=== PATIENT | female | born 1975 | race Caucasian/White ===

== ENCOUNTER → 2016-07-15 07:37 | Outpatient (CLI) | payer OTHER, MEDICAID ==
[2015-11-17 20:55] VITALS: BMI 21.2
[~2016-07-15 07:37] MED LIST: HYDROCODONE-APA1 TAB PO; KLONOPIN1 MG PO; OXYCONTIN15 MG PO; TEMAZEPAM30 MG PO
== END ==
LOC: D.MRI 07-14 16:00
DX: G43.919 Migraine, unspecified, intractable, without status migrainosus (principal)

== ENCOUNTER 2017-12-24 07:49 | Emergency (ER) | payer MEDICARE ==
[~2017-12-24] VITALS: Ht 170.2 cm; Wt 60.9 kg
[2017-12-24 07:55] VITALS: Ht 170.2 cm; Wt 60.9 kg
[2017-12-24] MEDS ORDERED: VITAMIN B-121000 MCG PO (07:59)
[2017-12-24] MEDS ORDERED: XANAX1 MG PO (07:59)
[2017-12-24] MEDS ORDERED: ADDERALL 20 MG20 M1 PO (08:00)
[2017-12-24] MEDS ORDERED: CYCLOBENZAPRINE10 MG PO ×2 (08:00→08:19)
[2017-12-24] MEDS ORDERED: NAPROSYN500 MG PO (08:01)
[2017-12-24] MEDS ORDERED: METROGEL 0.75 %45 GM TOPICAL (08:01)
[2017-12-24] MEDS ORDERED: NORCO 7.5/325 T1 TA1 PO (08:19)
[2017-12-24 09:10] VITALS: BP 114/80
== END 2017-12-24 09:10 | disposition home or self-care (01) ==
LOC: D.ER 07:49
DX: M50.10 Cervical disc disorder with radiculopathy, unspecified cervical region (principal); F41.9 Anxiety disorder, unspecified; F17.200 Nicotine dependence, unspecified, uncomplicated

== ENCOUNTER 2018-03-26 10:35 | Emergency (ER) | payer MEDICARE ==
[~2018-03-26] VITALS: Ht 170.2 cm; Wt 61.4 kg
[~2018-03-26 10:35] MED LIST changes: +ADDERALL 20 MG20 M1 PO; +CYCLOBENZAPRINE10 MG PO; +METROGEL 0.75 %45 GM TOPICAL; +NAPROSYN500 MG PO; +NORCO 7.5/325 T1 TA1 PO; +VITAMIN B-121000 MCG PO; +XANAX1 MG PO
[2018-03-26 10:40] VITALS: BP 148/87; Ht 170.2 cm; Wt 61.4 kg
[2018-03-26] MEDS ORDERED: VOLTAREN75 MG PO (13:23)
[2018-03-26] MEDS ORDERED: OMEPRAZOLE20 M1 PO (13:23)
== END 2018-03-26 13:50 | disposition home or self-care (01) ==
LOC: D.ER 10:35
DX: S59.902A Unspecified injury of left elbow, initial encounter (principal); Y93.83 Activity, rough housing and horseplay; Y93.89 Activity, other specified; Y92.89 Other specified places as the place of occurrence of the external cause; F17.200 Nicotine dependence, unspecified, uncomplicated

== ENCOUNTER 2018-04-15 16:13 | Inpatient (IN) | payer MEDICARE ==
[~2018-04-15] VITALS: Ht 170.2 cm; Wt 63.6 kg
[~2018-04-15 16:13] MED LIST changes: +OMEPRAZOLE20 M1 PO; +VOLTAREN75 MG PO
[2018-04-15 16:44] LABS: BASOPHILS 0.2 % (0-2); EOSINOPHILS 0.7 % (0-7); HEMATOCRIT 41.5 % (36.0-48.0); LYMPHOCYTES 12.5 % (15-50); MCH 33.4 pg (26.0-34.0); MCHC 33.7 g/dL (31.0-37.0); MEAN PLATELET VOLUME 11.1 fL (7.4-10.4); MONOCYTES 5.3 % (2-11); NEUTROPHILS 81.3 % (40-80); RBC 4.19 10x6/uL (4.00-5.40); RDW 13.3 % (11.5-14.5); WBC 4.6 10x3/uL (4.8-10.8)
[2018-04-15 16:48] LABS: PLATELET COUNT 87 10x3/uL (130-400)
[2018-04-15 16:49] LABS: HCG URINE NEGATIVE (NEGATIVE)
[2018-04-15 16:50] LABS: APPEARANCE CLEAR (CLEAR); BILIRUBIN 1+ (NEGATIVE); COLOR DK YELLOW (YELLOW); GLUCOSE NEGATIVE (NEGATIVE); KETONE NEGATIVE (NEGATIVE); NITRITE NEGATIVE (NEGATIVE); PROTEIN TRACE mg/dL (NEGATIVE)
[2018-04-15 17:24] LABS: ALBUMIN 3.4 g/dL (3.4-5.0); ALKALINE PHOSPHATASE 399 U/L (46-116); ALT (SGPT) 369 U/L (10-68); BILIRUBIN - TOTAL 1.58 mg/dL (0.2-1.3); CALC OSMOLALITY 275 mosm/kg (275-300); CARBON DIOXIDE 28.1 mmol/L (21.0-32.0); CHLORIDE - SERUM 99 mmol/L (98-107); CREATININE - SERUM 0.9 mg/dL (0.6-1.3); GLUCOSE 105 mg/dL (74-106); POTASSIUM - SERUM 3.7 mmol/L (3.5-5.1); PROTEIN - SERUM 6.5 g/dL (6.4-8.2); SODIUM 137 mmol/L (136-145); UREA NITROGEN 17 mg/dL (7-18); eGFR NON AFRICAN AMERICAN 73 mL/min (90-120)
[2018-04-15 17:27] LABS: TROPONIN-I < 0.017 ng/mL (0.000-0.060)
[2018-04-15 19:43] VITALS: BP 121/71
[2018-04-15 20:20] LABS: UDS - AMPHET NEGATIVE QUAL (NEGATIVE); UDS - BARB NEGATIVE QUAL (NEGATIVE); UDS - BENZO NEGATIVE QUAL (NEGATIVE); UDS - COCAINE NEGATIVE QUAL (NEGATIVE); UDS - OPIATE POSITIVE QUAL (NEGATIVE); UDS - PCP NEGATIVE QUAL (NEGATIVE); UDS - THC POSITIVE QUAL (NEGATIVE)
--- NOTE | 2018-04-15 21:01 | NUR ---
BREVING IN PATIENT ROOM AT THIS TIME TO SPEAK TO PATIENT.
--- NOTE | 2018-04-15 21:16 | NUR ---
REPORT CALLED TO NANDA RUANO AT THIS TIME
--- NOTE | 2018-04-15 21:36 | NUR ---
RECEIVED PT TO FLOOR FROM ER VIA WHEELCHAIR. REVIEWED HOME MEDS AND HISTORY. SET UP RAILROAD COOK AND IV FLUIDS. GAVE ORDERED MEDS. PT DRANK MAG CITRATE AND CLEAR LIQUIDS UNTIL MIDNIGHT. PT WALKING HALLWAYS. WILL CONTINUE TO MONITOR.
[2018-04-16] VITALS (7 sets, daily range): BP systolic 110–157; BP diastolic 52–94; BMI 21.9
[2018-04-16] MEDS ORDERED: CATAPRES0.2 MG PO (02:01)
[2018-04-16] MEDS ORDERED: NORCO 10-325 TA1 TAB PO (02:03)
[2018-04-16 06:03] LABS: BASOPHILS 0.2 % (0-2); EOSINOPHILS 1.3 % (0-7); HEMATOCRIT 41.2 % (36.0-48.0); HEMOGLOBIN 13.5 g/dL (12-16); IMMATURE GRANULOCYTES 0.2 % (0-5); LYMPHOCYTES 37.2 % (15-50); MCHC 32.8 g/dL (31.0-37.0); MCV 100.7 fL (80.0-100.0); MEAN PLATELET VOLUME 11.8 fL (7.4-10.4); MONOCYTES 4.5 % (2-11); NEUTROPHILS 56.6 % (40-80); PLATELET COUNT 73 10x3/uL (130-400); RBC 4.09 10x6/uL (4.00-5.40); RDW 13.6 % (11.5-14.5); WBC 4.7 10x3/uL (4.8-10.8)
[2018-04-16 06:21] LABS: ALBUMIN 3.5 g/dL (3.4-5.0); ALKALINE PHOSPHATASE 411 U/L (46-116); ALT (SGPT) 279 U/L (10-68); BILIRUBIN - TOTAL 0.71 mg/dL (0.2-1.3); CALCIUM 8.1 mg/dL (8.5-10.1); CHLORIDE - SERUM 107 mmol/L (98-107); CREATININE - SERUM 0.8 mg/dL (0.6-1.3); GLUCOSE 119 mg/dL (74-106); MAGNESIUM - SERUM 2.2 mg/dL (1.8-2.4); PHOSPHOROUS 2.8 mg/dL (2.5-4.9); POTASSIUM - SERUM 3.8 mmol/L (3.5-5.1); SODIUM 139 mmol/L (136-145); eGFR NON AFRICAN AMERICAN 83 mL/min (90-120)
[2018-04-16 06:22] LABS: CALC OSMOLALITY 277 mosm/kg (275-300); CARBON DIOXIDE 18.9 mmol/L (21.0-32.0); UREA NITROGEN 10 mg/dL (7-18)
[2018-04-16 06:51] LABS: PLATELET ESTIMATE DECREASED; PLATELET MORPHOLOGY GIANT PLTS PRESENT
--- NOTE | 2018-04-16 11:04 | NUR ---
ALERT AND ORIENTED AND VERY ANXIOUS HAS BEEN NPO. US OF ABDOMEN DONE. AWAITING FURTHER ORDERS FROM MD. IVF AND PROGRAM PROFESSIONAL DILAUDID INFUSING AT PRESCRIBED RATE. NPO UNTIL FURTHER ORDERS
--- NOTE | 2018-04-16 12:59 | NUR ---
PATIENT PREVIOUSLY REQUESTED TO BE UNHOOKED TO AMBULATED IN HALLWAY WITH FRIEND AND RETURNED 30 MINUTES LATER WANTING A BOLUS. STATED WAS TOLD COULD HAVE A BOLUS WITH NO ORDER NOTED. PATIENT VISABLY UPSET AND WANTING A SHOWER WELL.INFORMED THERE WAS NOT AN ORDER FOR A BOLUS AT THIS TIME.
[2018-04-16] MEDS ORDERED: VITAMIN B-121000 MCG IM (17:01)
[2018-04-16] MEDS ORDERED: CATAPRES0.1 MG PO (17:02)
[2018-04-16] MEDS ORDERED: RESTORIL15 MG PO (17:02)
[2018-04-16] MEDS ORDERED: XANAX1 MG PO (17:04)
--- NOTE | 2018-04-16 20:08 | NUR ---
PATIENT ANXIOUS AND STOPPED dR. MCLEOD IN REPLACED BY [facility]. DR. MCLEOD ORDERED EKG FOR PATIENT.ZOFRAN GIVEN FOR COMPLAINTS OF NAUSEA. PATIENT PREVIOUSLY COMPLAINED OF HAVING AL ALLERGIC REACTION WHICH RESIDENT DID PRESENT WITH REDNESS TO EYES AND COMPLAINTS OF ITCHING ALL OVER. SOLUMEDROL AND BENADRYL GIVEN IVP FOR SYMPTOMS AND EFFECTIVE.
[2018-04-17] VITALS: BP 156/81
[2018-04-17 03:00] VITALS: BP 169/74
[2018-04-17 03:57] LABS: BASOPHILS 0 % (0-2); EOSINOPHILS 0 % (0-7); HEMATOCRIT 33.2 % (36.0-48.0); HEMOGLOBIN 10.8 g/dL (12-16); IMMATURE GRANULOCYTES 0.2 % (0-5); LYMPHOCYTES 10.6 % (15-50); MCH 32.3 pg (26.0-34.0); MCHC 32.5 g/dL (31.0-37.0); MCV 99.4 fL (80.0-100.0); MEAN PLATELET VOLUME 11.8 fL (7.4-10.4); MONOCYTES 5.3 % (2-11); NEUTROPHILS 83.9 % (40-80); RBC 3.34 10x6/uL (4.00-5.40); RDW 13.3 % (11.5-14.5); WBC 4.9 10x3/uL (4.8-10.8)
[2018-04-17 04:03] LABS: PLATELET COUNT 57 10x3/uL (130-400)
[2018-04-17 04:04] LABS: INR 0.92 (0.85-1.17); PROTIME 11.9 SECONDS (11.6-15.0)
[2018-04-17 04:17] LABS: % SATURATION 6 % (15-55); IRON 17 ug/dl (35-150); TOTAL IRON BIND CAPACITY 277 ug/dl (260-445); UNSAT IRON BIND CAPACITY 260 ug/dl (150-375)
[2018-04-17 04:25] LABS: ALKALINE PHOSPHATASE 269 U/L (46-116); AMYLASE - SERUM 21 U/L (25-115); BILIRUBIN - TOTAL 0.26 mg/dL (0.2-1.3); CALCIUM 7.8 mg/dL (8.5-10.1); CHLORIDE - SERUM 105 mmol/L (98-107); CHOL - HDL RATIO 2.5 ratio (2.3-4.1); CHOLESTEROL, TOTAL 132 mg/dL (0-200); CREATININE - SERUM 0.7 mg/dL (0.6-1.3); FERRITIN 68 ng/mL (3-244); GLUCOSE 166 mg/dL (74-106); HDL CHOLESTEROL 52 mg/dL (32-96); LDL CHOLESTEROL 60 mg/dL (0-100); LDL-HDL RATIO 1.2 ratio (1.5-3.5); LIPASE 102 U/L (73-393); POTASSIUM - SERUM 3.9 mmol/L (3.5-5.1); PRE-ALBUMIN 18.5 mg/dL (18.0-35.7); PROTEIN - SERUM 5.5 g/dL (6.4-8.2); SODIUM 139 mmol/L (136-145); TRIGLYCERIDE 102 mg/dL (30-200); eGFR NON AFRICAN AMERICAN > 90 mL/min (90-120)
[2018-04-17 04:29] LABS: ALBUMIN 2.6 g/dL (3.4-5.0); ALT (SGPT) 139 U/L (10-68); CALC OSMOLALITY 278 mosm/kg (275-300); CARBON DIOXIDE 27.7 mmol/L (21.0-32.0); UREA NITROGEN 5 mg/dL (7-18)
[2018-04-17 09:00] VITALS: BP 122/78
[2018-04-17 09:53] VITALS: Ht 170.2 cm; Wt 63.6 kg
--- NOTE | 2018-04-17 12:01 | NUR ---
TO MRI PER WC
[2018-04-17 12:06] VITALS: BP 122/78
[2018-04-17 13:34] VITALS: BP 129/77
[2018-04-17 16:00] VITALS: BP 142/78
[2018-04-17] MEDS ORDERED: MIRALAX17 GM PO (16:12)
--- NOTE | 2018-04-17 17:01 | MORECARE ---
CASE MANAGEMENT DISCHARGE SUMMARY PATIENT: ROSENDA MERCEDES UNIT: [id number] ADM DATE: 04/15/18 AGE: 42 : 75 SEX: F ROOM/BED: D.2228 AUTHOR: LOLA ENGLISH PHYSICIAN: REFERRING PHYSICIAN: KEELY RAMIREZ MD DATE OF SERVICE: 04/17/18 Discharge Plan Patient Name: ROSENDA MERCED[facility] [facility] 1975 Planned Disposition: Home Anticipated Discharge Date: Discharge Date: Expected LOS: Initial Reviewer: [email or web address] Initial Review Date: 04/17/2018 Generated: 04/17/18 6:01 pm DCPIA - Discharge Planning Initial Assessment Updated by [email or web address]: Amanda Pike on 04/17/18 4:58 pm * Is the patient Alert and Oriented? Yes * PCP none * Pharmacy [facility] [address] * Preadmission Environment Other * Other Environment States has been living with friends * ADLs Independent * Equipment None * List name and contact numbers for known caregivers / representatives who currently or will assist patient after discharge: Cain jack - [phone] * Verbal permission to speak to the caregivers and representatives has been obtained from the patient. Yes * Community resources currently utilized None * Additional services required to return to the preadmission environment? No * Can the patient safely return to the preadmission environment? Yes * Has this patient been hospitalized within the prior 30 days at any hospital? No Patient Name: ROSENDA MERCEDES Page [id number] at 1701 All edits/amendments must be made on the electronic document DICTATION DATE: 04/17/18 170 CASINO SHIFT MANAGER: GILMER 04/17/18 170 RPT#: [id number] DC DATE: STATUS: ADM IN [facility] [address] [place] [address] END OF REPORT
--- NOTE | 2018-04-17 17:11 | MORECARE ---
CASE MANAGEMENT DISCHARGE SUMMARY PATIENT: ROSENDA MERCEDES UNIT: [id number] ADM DATE: 04/15/18 AGE: 42 : 75 SEX: F ROOM/BED: D.2228 AUTHOR: AMADOR,DOC PHYSICIAN: REFERRING PHYSICIAN: KEELY RAMIREZ MD DATE OF SERVICE: 04/17/18 Discharge Plan Patient Name: ROSENDA MERCEDES Facility: [facility]:[place] : 1975 Planned Disposition: Home Anticipated Discharge Date: Discharge Date: Expected LOS: Initial Reviewer: [email or web address] Initial Review Date: 04/17/2018 Generated: 04/17/18 6:10 pm Comments DCP- Discharge Planning Updated by [email or web address]: Amanda Pike on 04/17/18 4:[address] Patient Name: ROSENDA MERCEDES Admission Status: ER Accout number: [id number] Admission Date: 04-15-2018 : 1975 Admission Diagnosis: Attending: JAMES, Current LOS: 2 Anticipated DC Date: Planned Disposition: Home Primary Insurance: MEDICARE A & B Discharge Planning Comments: Met with patient to discuss discharge planning, she is alone in the room. States she is going to stay with a friend scottie. States she does have a daughter here in [place] and a sister in [place] that she could stay with, but her daughter is 9 months and her sister is controlling. States she has been living at different friend's homes. She states that she needs a primary doctor, I suggested that she call and see who is taking Medicare. She is also going to check [facility] and states she will check with the offices in [place]. A list of homeless shelters and food pantries provided per her request. CM will continue to follow and assist with discharge planning/needs. Horticultural Specialty Grower Inside: Amanda Pike DCPIA - Discharge Planning Initial Assessment Updated by [email or web address]: Amanda Pike on 04/17/18 4:58 pm * Is the patient Alert and Oriented? Yes * PCP none * Pharmacy [facility] [address] * Preadmission Environment Other * Other Environment States has been living with friends * ADLs Independent * Equipment None * List name and contact numbers for known caregivers / representatives who currently or will assist patient after discharge: Cain jack - [phone] * Verbal permission to speak to the caregivers and representatives has been obtained from the patient. Yes * Community resources currently utilized None * Additional services required to return to the preadmission environment? No * Can the patient safely return to the preadmission environment? Yes * Has this patient been hospitalized within the prior 30 days at any hospital? No Last DP export: 04/17/18 4:01 p Patient Name: ROSENDA MERCEDES Page 78698 at 1711 All edits/amendments must be made on the electronic document DICTATION DATE: 04/17/181709 PIPE AND BOILER COVERS SUPERVISOR: GILMER 04/17/181709 RPT#: [id number] DC DATE: STATUS: ADM IN [facility] [address] [place] [address] END OF REPORT
--- NOTE | 2018-04-17 18:21 | NUR ---
PATIENT UP WALKING ABOUT IN ROOM DISCHARGE INSTRUCTIONS GIVEN AND VERBALIZED UNDERSTANDING AND IV REMOVED. PATIENT DISCHARGED VIA PRIVATE VEHICLE WITH BELONGINGS AND DISCHARGE PAPER WORK.
[2018-04-18 07:28] LABS: HEPATITIS C ANTIBODY <0.1 S/CO RAT (0.0-0.9)
[2018-04-18 11:21] LABS: ALPHA FETOPROTEIN -(TUMOR MRK) 2.4 ng/mL (0.0-8.3); CA 19-9 1 U/mL (0-35); CEA 2.9 ng/mL (0.0-4.7)
[2018-04-18 12:17] LABS: EBV - EARLY ANTIGEN AB IGG <9.0 U/mL (0.0-8.9); EBV - NUCLEAR ANTIGEN AB IGG 79.6 U/mL (0.0-17.9); EBV VIRAL CAPSID AB IGM <36.0 U/mL (0.0-35.9); HELICOBACTER PYLORI IGM AB <9.0 units (0.0-8.9)
[2018-04-18 13:19] LABS: ANA REFLEX - DIRECT Negative (Negative)
--- NOTE | 2018-04-19 07:14 | MORECARE ---
CASE MANAGEMENT DISCHARGE SUMMARY PATIENT: ROSENDA MERCEDES UNIT: [id number] ADM DATE: 04/15/18 AGE: 42 : 75 SEX: F ROOM/BED: D.2228 AUTHOR: AMADOR,DOC PHYSICIAN: REFERRING PHYSICIAN: KEELY RAMIREZ MD DATE OF SERVICE: 04/19/18 Discharge Plan Patient Name: ROSENDA MERCEDES Facility: [facility]:[place] : 1975 Planned Disposition: Home Anticipated Discharge Date: Discharge Date: 04/17/2018 Expected LOS: 0 Initial Reviewer: [email or web address] Initial Review Date: 04/17/2018 Generated: 04/19/18 8:14 am Comments DCP- Discharge Planning Updated by [email or web address]: Amanda Pike on 04/17/18 4:[address] Patient Name: ROSENDA MERCEDES Admission Status: ER Accout number: [id number] Admission Date: 04-15-2018 : 1975 Admission Diagnosis: Attending: JAMES, Current LOS: 2 Anticipated DC Date: Planned Disposition: Home Primary Insurance: MEDICARE A & B Discharge Planning Comments: Met with patient to discuss discharge planning, she is alone in the room. States she is going to stay with a friend sctotie. States she does have a daughter here in [place] and a sister in [place] that she could stay with, but her daughter is 9 months and her sister is controlling. States she has been living at different friend's homes. She states that she needs a primary doctor, I suggested that she call and see who is taking Medicare. She is also going to check [facility] and states she will check with the offices in [place]. A list of homeless shelters and food pantries provided per her request. CM will continue to follow and assist with discharge planning/needs. Wearing Apparel Shaker: Amanda Pike DCPIA - Discharge Planning Initial Assessment Updated by [email or web address]: Amanda Pike on 04/17/18 4:58 pm * Is the patient Alert and Oriented? Yes * PCP none * Pharmacy [facility] [address] * Preadmission Environment Other * Other Environment States has been living with friends * ADLs Independent * Equipment None * List name and contact numbers for known caregivers / representatives who currently or will assist patient after discharge: Cain jack - [phone] * Verbal permission to speak to the caregivers and representatives has been obtained from the patient. Yes * Community resources currently utilized None * Additional services required to return to the preadmission environment? No * Can the patient safely return to the preadmission environment? Yes * Has this patient been hospitalized within the prior 30 days at any hospital? No Last DP export: 04/17/18 4:10 p Patient Name: ROSENDA MERCEDES Page 13701 at 0714 All edits/amendments must be made on the electronic document DICTATION DATE: 04/19/18712 RECREATION ASSISTANT: GILMER 04/19/18712 RPT#: [id number] DC DATE:04/17/18 STATUS: DIS IN [facility] [address] [place] [address] END OF REPORT
[2018-04-19 12:16] LABS: MITOCHONDRIAL ANTIBODY <20.0 Units (0.0-20.0); SMOOTH MUSCLE ABS (ACTIN) 7 Units (0-19)
== END 2018-04-17 17:30 | disposition home or self-care (01) | DRG 445 ==
LOC: D.ER 16:13 → D.MS 20:12 → D.EDHOLD 20:12 → D.MS 21:10 → D.SDCHOLD 04-17 13:55 → D.MS 04-17 13:59
PROVIDERS: Family Medicine; Internal Medicine Gastroenterology; Internal Medicine Nephrology; Surgery; ADMIT Family Medicine
DX: K82.8 Other specified diseases of gallbladder (principal); F17.213 Nicotine dependence, cigarettes, with withdrawal; M50.30 Other cervical disc degeneration, unspecified cervical region; E86.0 Dehydration; F41.9 Anxiety disorder, unspecified; S52.122A Displaced fracture of head of left radius, initial encounter for closed fracture

== ENCOUNTER 2018-05-19 08:44 | Day surgery (SDC) | payer MEDICARE ==
[~2018-05-19] VITALS: Ht 175.3 cm; Wt 63.5 kg
[~2018-05-19 08:44] MED LIST changes: +CATAPRES0.1 MG PO; +CATAPRES0.2 MG PO; +MIRALAX17 GM PO; +NORCO 10-325 TA1 TAB PO; +RESTORIL15 MG PO; +VITAMIN B-121000 MCG IM
[2018-05-19 10:23] VITALS: BP 109/76; Ht 175.3 cm; Wt 63.5 kg
[2018-05-19 11:44] LABS: CALC OSMOLALITY 276 mosm/kg (275-300); CALCIUM 8.3 mg/dL (8.5-10.1); CARBON DIOXIDE 21.8 mmol/L (21.0-32.0); CHLORIDE - SERUM 104 mmol/L (98-107); CREATININE - SERUM 0.7 mg/dL (0.6-1.3); SODIUM 140 mmol/L (136-145); UREA NITROGEN 8 mg/dL (7-18); eGFR NON AFRICAN AMERICAN > 90 mL/min (90-120)
[2018-05-19 11:50] LABS: BASOPHILS 0.3 % (0-2); EOSINOPHILS 2.6 % (0-7); HEMOGLOBIN 13.2 g/dL (12-16); IMMATURE GRANULOCYTES 0.3 % (0-5); MCH 32.6 pg (26.0-34.0); MCHC 33.8 g/dL (31.0-37.0); MCV 96.3 fL (80.0-100.0); NEUTROPHILS 69.8 % (40-80); RBC 4.05 10x6/uL (4.00-5.40); RDW 12.8 % (11.5-14.5); WBC 11.5 10x3/uL (4.8-10.8)
[2018-05-19 11:51] LABS: GLUCOSE 95 mg/dL (74-106)
[2018-05-19 11:54] LABS: PLATELET COUNT 136 10x3/uL (130-400)
--- NOTE | 2018-05-19 14:00 | NUR ---
REC'D FROM RR. FAMILY AT BEDSIDE. MOUNTAIN DEW AND FL TRAY BROUGHT TO PATIENT. AMBULATED TO BATHROOM.
--- NOTE | 2018-05-19 14:30 | NUR ---
AMBULATORY TO THE BATHROOM. TOLERATED FL TRAY. VOIDING WITHOUT DIFFICULTY.
--- NOTE | 2018-05-19 14:45 | NUR ---
IV DC'D WITH CATHETER INTACT. WRITTEN AND VERBAL DC INST. GIVEN TO PT ALONG WITH RX. VERBALIZED UNDERSTANDING. WAITING FOR RIDE.
--- NOTE | 2018-05-19 15:10 | NUR ---
DC'D HOME WITH FRIEND/FAMILY VIA PRIVATE VEHICLE. TAKEN TO VEHICLE VIA WC. STABLE AT TIME OF DC.
--- NOTE | 2018-05-22 07:56 | OP ---
PATIENT NAME: ROSENDA MERCEDES MEDICAL RECORD: [id number] :[birth year] LOCATION:[facility] ADMISSION DATE: SURGEON: DONITA LAU MD DATE OF OPERATION: 05/19/2018 PREOPERATIVE DIAGNOSIS: Inevitable . POSTOPERATIVE DIAGNOSIS: Inevitable . PROCEDURE: Evacuation with curettage. SURGEON: Donita Lau MD ANESTHESIOLOGIST: Dr. Vernon ANESTHETIC: General. FINDINGS: Uterus is enlarged to approximately 10 weeks size. Cervical os was opened and easily accommodates a 7 Hegar dilator. Moderate to copious amounts of products of conception returned at the time of curettage. SPECIMENS REMOVED: Products of conception. SPECIMEN DISPOSITION: Pathology. ESTIMATED BLOOD LOSS: 75 cc. FLUIDS: 700 cc of lactated Ringer's. URINE OUTPUT: Quantity sufficient void prior to this procedure. COMPLICATIONS: None. DRAINS: None. INDICATIONS: The patient is a 42-year-old female with heavy irregular bleeding and known intrauterine . The patient is consented for evacuation and any indicated procedure. DESCRIPTION OF PROCEDURE: After informed consent was assured, the patient was taken to the operating room where anesthetic was obtained. The patient was now prepped and draped in the usual sterile fashion. The speculum was introduced and the cervical os was grasped with single tooth tenaculum. The cervical os easily admits a #7 Hegar dilator. The cervix was further dilated to a #10 Hegar to accommodate a 9 curved suction curette. This was passed to the fundus and a moderate amount of tissue was easily extracted. A curettage was performed with good cry throughout. The suction device was then placed one more time in the uterine cavity with removal of all remaining clot and debris. Methergine 0.2 mg given IM at the close of this procedure. The patient tolerated this procedure well and went to the recovery room in stable condition. TRANSINT:[id number] Voice Confirmation ID: [id number] DOCUMENT ID: [id number] OPERATIVE REPORT [id number] MAGOROSENDA DONITA LAU MD at 0756 CC: [id number] DICTATION DATE: 05/19/18 1246 ROUSTABOUT SUPERVISOR: 05/19/18 1259 [facility] 05/19/18 [id number] [place] [address]
== END 2018-05-19 15:10 | disposition home or self-care (01) ==
LOC: D.OPS 08:44
PROVIDERS: Anesthesiology; ATTEND Obstetrics & Gynecology
DX: O03.4 Incomplete spontaneous abortion without complication (principal); Z01.812 Encounter for preprocedural laboratory examination

== ENCOUNTER 2018-07-19 19:18 | Emergency (ER) | payer MEDICARE ==
[2018-07-19 19:44] VITALS: Ht 175.3 cm
[2018-07-19 23:03] VITALS: BP 130/86
== END 2018-07-19 23:17 | disposition left against medical advice (07) ==
LOC: D.ER 19:18
DX: F10.129 Alcohol abuse with intoxication, unspecified (principal); V49.9XXA Car occupant (driver) (passenger) injured in unspecified traffic accident, initial encounter; Y93.89 Activity, other specified; Y92.410 Unspecified street and highway as the place of occurrence of the external cause

== ENCOUNTER → 2018-10-10 13:20 | Outpatient (CLI) | payer MEDICARE | END | disposition home or self-care (01) | LOC: D.MRI 13:20 | PROVIDERS: ATTEND Clinical Nurse Specialist Family Health | DX: M25.521 Pain in right elbow (principal) ==

== ENCOUNTER 2019-02-22 10:00 | Emergency (ER) | payer MEDICARE ==
[~2019-02-22] VITALS: Ht 171.4 cm; Wt 61.8 kg
[2019-02-22 10:05] VITALS: Ht 171.4 cm; Wt 61.8 kg
[2019-02-22] MEDS ORDERED: AUGMENTIN 875-11 TAB PO (10:21)
[2019-02-22] MEDS ORDERED: [UNRECOGNIZED DRUG - OTHER] PO (10:22)
[2019-02-22 10:42] LABS: HCG URINE NEGATIVE (NEGATIVE)
[2019-02-22] MEDS ORDERED: MUCINEX DM ER1 EAC1 PO (11:08)
[2019-02-22] MEDS ORDERED: CYCLOBENZAPRINE10 MG PO (12:14)
[2019-02-22] MEDS ORDERED: ULTRAM50 MG PO (12:19)
[2019-02-22 12:44] VITALS: BP 117/71
== END 2019-02-22 12:41 | disposition home or self-care (01) ==
LOC: D.ER 10:00
PROVIDERS: Family Medicine
DX: M54.5 Low back pain (principal); R05 Cough